=== PATIENT | male | born 1930 | race Caucasian/White ===

== ENCOUNTER 2016-10-03 05:54 | Day surgery (SDC) | payer MEDICARE, OTHER ==
[2016-10-03] MEDS ORDERED: Lactated Ringers 1,000 ML IV ONE (06:05)
[2016-10-03] MEDS ORDERED: Lactated Ringers 1,000 ML IV SCH (06:30)
[2016-10-03] MEDS ORDERED: DIPRIVAN 200 MG/20 ML IV ONE (08:00)
[2016-10-03 08:54] VITALS: PULSE 65
[2016-10-03 09:10] VITALS: O2SAT 93
[2016-10-03 09:18] VITALS: BP 169/80
--- NOTE | 2016-10-03 11:50 | OP ---
SURGERY DATE/TIME: 10/03/2016709 PREOPERATIVE DIAGNOSIS: Rectal bleeding. POSTOPERATIVE DIAGNOSIS: Eight sessile polyps status post hot forceps polypectomy. PROCEDURE: Colonoscopy. SURGEON: Kush Wood M.D. ANESTHESIA: MAC by Anders Jaime CRNA. ESTIMATED BLOOD LOSS: Minimal. SPECIMENS: Eight sessile polyps for hot forceps polypectomy. DESCRIPTION OF PROCEDURE: After informed written consent was obtained, the patient was taken to the endoscopy suite. He underwent monitored anesthesia and digital rectal exam showed normal sphincter tone and no internal lesions. The scope was inserted in the rectum and sequentially the entire colonic mucosa was traversed. The level of cecum was reached and verified with direct visualization of ileocecal valve. Four sessile polyps were removed from the pericecal area and sent together for pathology testing. They were all small and benign appearing in nature. There were two more polyps present in the ascending colon and these were near the hepatic flexure. They likewise were removed in their entirety with hot forceps with removal of the entire lesion and good hemostasis. Upon withdrawal careful mucosal inspection revealed two more polyps removed from the sigmoid colon region and sent for pathology testing after hot forceps and removed the entire lesion with good hemostasis. Prior to withdrawal retroflexion was performed and showed no internal lesions. The scope was removed and the patient was transferred to the recovery room in excellent condition.
== END 2016-10-03 09:18 | disposition home or self-care (01) ==
LOC: SDC 05:54
PROVIDERS: ATTEND Family Medicine
PROC: 0DBH8ZX Excision of Cecum, Via Natural or Artificial Opening Endoscopic, Diagnostic (ICD-10-PCS; principal; 2016-10-03)
PROC: 0DBN8ZX Excision of Sigmoid Colon, Via Natural or Artificial Opening Endoscopic, Diagnostic (ICD-10-PCS; 2016-10-03)
PROC: 0DBK8ZX Excision of Ascending Colon, Via Natural or Artificial Opening Endoscopic, Diagnostic (ICD-10-PCS; 2016-10-03)
DX: D12.0 Benign neoplasm of cecum (principal); D12.2 Benign neoplasm of ascending colon; D12.4 Benign neoplasm of descending colon; I10 Essential (primary) hypertension; I25.2 Old myocardial infarction; Z79.899 Other long term (current) drug therapy; Z79.4 Long term (current) use of insulin
CPT/HCPCS: 00810; 36415; 88305; 99100; J2704

== ENCOUNTER 2018-10-17 14:08 | Emergency (ER) | payer MEDICARE, OTHER ==
--- NOTE | 2018-10-17 16:04 | ERPHSYRPT ---
- History of Present Illness Time Seen by Provider: 10/17/18 15:26 Source: patient Exam Limitations: no limitations Patient Subjective Stated Complaint: is being treated for a UTI. started with back pain today. no known injury. Triage Nursing Assessment: alert and in no distress.. c/o pain in right low back pain this AM. currently being treated dfor a UTI.. was seen by Dr Day for this problem.. denies injury to his back. able to ambulate. states his urine is better but concerned of the back pain" Physician History: Pt has been c/o right sided low back pain for weeks. He was seen by his physician earlier this week, and started on antibiotics for UTI. He woke up this morning c/o more severe pain, called his doctor and was instructed to come here. He denies fall, injury to his back, no former surgery, no fever, chills, nausea, vomiting, or difficulty urinating. He also denies abdominal or chest pain, SOB, other complaints. He is able to ambulate, no leg weakness, numbness or radiating pain to his legs. Timing/Duration: week(s) (2) Method of Injury: unknown Quality: sharp Back Pain Location: lumbar spine Severity of Pain-Max: severe Severity of Pain-Current: moderate Modifying Factors: Improves With: immobilization, movement Associated Symptoms: denies symptoms Previous symptoms: same symptoms as today Allergies/Adverse Reactions: codeine Adverse Reaction (Unknown, Verified 10/03/16 07:54) Penicillins Adverse Reaction (Unknown, Verified 10/03/16 07:54) Sulfa (Sulfonamide Antibiotics) Adverse Reaction (Unknown, Verified 10/03/16 07: 54) Home Medications: Acetaminophen 1,000 mg PO BID 10/03/16 [History] Ascorbic Acid [Vitamin C] 100 mg PO DAILY 10/03/16 [History] Aspirin [Aspirin EC] 81 mg PO DAILY 10/03/16 [History] Atorvastatin Calcium 80 mg PO DAILY 10/03/16 [History] Calcium 1 tab PO BID 10/03/16 [History] Famotidine 20 mg [Pepcid 20 MG] 20 mg PO BID 10/03/16 [History] Famotidine 20 mg [Pepcid 20 MG] 20 mg PO DAILY 10/03/16 [History] Finasteride 5 mg [Proscar 5 MG] 5 mg PO DAILY 10/03/16 [History] Furosemide 40 mg [Lasix 40 MG] 40 mg PO DAILY 10/03/16 [History] Gabapentin 300 mg PO TID 10/03/16 [History] Losartan Potassium 50 mg [Cozaar 50 MG] 50 mg PO BID 10/03/16 [History] Magnesium Oxide 400 mg [Mag-Ox 400] 400 mg PO BID 10/03/16 [History] Metoprolol Tartrate 50 mg [Lopressor 50 MG] 50 mg PO BID 10/03/16 [History ] Multivitamin [Daily Multivitamin] 1 tab PO DAILY 10/03/16 [History] PANTOPRAZOLE 40 mg Tablet [Protonix 40MG Tablet] 40 mg PO DAILY 10/03/16 [ History] Potassium Chloride [Klor-Con] 20 meq PO BID 10/03/16 [History] Tamsulosin HCl 0.4 mg [Flomax 0.4 MG] 0.4 mg PO DAILY 10/03/16 [History] Warfarin Sodium 2.5 mg [Coumadin 2.5 MG] 2.5 mg PO DAILY 10/03/16 [History ] - Review of Systems Constitutional: No Symptoms Ears, Nose, & Throat: No Symptoms Respiratory: No Symptoms Cardiac: No Symptoms Abdominal/Gastrointestinal: No Symptoms Genitourinary Symptoms: No Symptoms Musculoskeletal: Back Pain Skin: No Symptoms Neurological: No Symptoms All Other Systems: Reviewed and Negative - Past Medical History Pertinent Past Medical History: Yes Neurological History: No Pertinent History ENT History: Cataracts Cardiac History: Arrhythmia, Hypertension, Myocardial Infarction ([place]) Respiratory History: No Pertinent History Endocrine Medical History: No Pertinent History Musculoskeletal History: Osteoarthritis, Other GI Medical History: No Pertinent History History: Renal Disease Psycho-Social History: No Pertinent History Male Reproductive Disorders: Prostate Problems Other Medical History: Left KNEE REPLACEMENT 2011, CATARACTS BOTH EAYES 2010 AND 2011, OPEN HEART SURGERY 2016 November 30,pacemaker Jun 12 2016, states saw a kidney Dr once and was told he has 37% function, pt states kidney function has increased to 40's - Past Surgical History Past Surgical History: Yes Neuro Surgical History: No Pertinent History Cardiac: CABG, Pacemaker Respiratory: No Pertinent History Gastrointestinal: No Pertinent History Genitourinary: No Pertinent History Musculoskeletal: Orthopedic Surgery Male Surgical History: No Pertinent History Other Surgical History: Left knee replacement,open heart November,Pacemaker ,bilateral cataract removal with lens implants, tribeckelectomy- procedure for glaucoma to remove pressure - Social History Smoking Status: Never smoker Exposure to second hand smoke: No Drug Use: none Patient Lives Alone: No - Nursing Vital Signs Nursing Vital Signs: Initial Vital Signs Temperature 98 F 10/17/18 15:30 Pulse Rate 65 10/17/18 15:30 Respiratory Rate 18 10/17/18 15:30 Blood Pressure 180/91 10/17/18 15:30 O2 Sat by Pulse Oximetry 97 10/17/18 15:30 Pain Scale Pain Intensity 4 - Physical Exam General Appearance: no apparent distress Eye Exam: eyes nml inspection Ears, Nose, Throat Exam: normal ENT inspection, moist mucous membranes Neck Exam: normal inspection, non-tender, supple, No JVD Respiratory Exam: normal breath sounds, lungs clear Cardiovascular Exam: regular rate/rhythm, normal heart sounds, normal peripheral pulses Gastrointestinal Exam: soft, normal bowel sounds, No tenderness, No distention, No mass, No guarding, No pulsatile mass, No rebound, No organomegaly Back Exam: normal inspection, other (right lumbosacral tenderness, no spasms), No CVA tenderness, No vertebral tenderness, No rash, No muscle spasm, No point tenderness Extremity Exam: normal inspection, No calf tenderness Peripheral Pulses: dorsalis-pedis (R): 2+, dorsalis-pedis (L): 2+ Neurologic Exam: alert, oriented x 3, cooperative, normal mood/affect, sensation nml, No motor deficits Skin Exam: normal color, warm, dry, No rash SpO2 Interpretation: normal SpO2: 97 O2 Delivery: Room Air - Course Nursing assessment & vital signs reviewed: Yes - CT Exams Abdomen/Pelvis CT Interpretation: Other (right kidney calyceal stone, no obstruction) Ordered Tests: Active Orders 24 hr Category Date Time Status ABDOMEN AND PELVIS W/0 CONTRAS [CT] Stat Exams 10/17/18 15:51 Taken UA W/RFX UR CULTURE Stat Lab 10/17/18 16:15 Completed Medication Summary Discontinued Medications Generic Name Dose Route Start Last Admin Trade Name Freq PRN Reason Stop Dose Admin Tramadol HCl 50 mg 10/17/18 17:28 Ultram 50 Mg PO 10/17/18 17:29 STAT ONE Lab/Rad Data: Laboratory Results 10/17/18 Range/Units 16:15 Urine Color YELLOW (YELLOW) Urine Appearance CLEAR (CLEAR) Urine pH 5.0 (5-6) Ur Specific [place] 1.012 (1.005-1.025) Urine Protein NEGATIVE (Negative) Urine Ketones NEGATIVE (NEGATIVE) Urine Blood SMALL (0-5) Mahendra/ul Urine Nitrite NEGATIVE (NEGATIVE) Urine Bilirubin NEGATIVE (NEGATIVE) Urine Urobilinogen NEGATIVE (0-1) mg/dL Ur Leukocyte Esterase NEGATIVE (NEGATIVE) Urine WBC (Auto) NONE (0-5) /HPF Urine RBC (Auto) NONE (0-2) /HPF U Epithel Cells (Auto) NONE (FEW) /HPF Urine Bacteria (Auto) NONE SEEN (NEGATIVE) /HPF Urine Mucus (Auto) SLIGHT (NEGATIVE) /HPF Urine Culture Reflexed NO (NO) Urine Glucose NEGATIVE (NEGATIVE) mg/dL - Progress Progress: unchanged Progress Note: 10/17/18 17:[address] and lab results, he has been stable, afebrile, he was given an Ultram to go home and rest x 2-3 days, apply moist heat to his back and follow up with his physician in 2-3 days. Counseled pt/family regarding: lab results, diagnosis, need for follow-up, rad results - Departure Departure Disposition: Home Clinical Impression: Back pain Qualifiers: Back pain location: low back pain Chronicity: acute Back pain laterality: right Sciatica presence: without sciatica Qualified Code(s): M54.5 - Low back pain Condition: Stable Critical Care Time: No Referrals: DREAD DAY MD [Primary Care Provider] - Instructions: Low Back Pain (DC) Additional Instructions: Rest x 2-3 days, apply moist heat to painful area, and follow up with your physician next week! Return if severe pain, sudden leg weakness, numbness, loss of bladder, bowel control! Prescriptions: Cyclobenzaprine HCl 10 mg [Cyclobenzaprine 10 MG] 10 mg PO TID #30 tablet Tramadol HCl 50 mg [Ultram 50 mg] 50 mg PO Q6H #10
[2018-10-17 16:24] LABS: Appearance CLEAR (CLEAR); Bilirubin NEGATIVE (NEGATIVE); Blood SMALL Ery/ul (0-5); Glucose NEGATIVE (NEGATIVE); Ketones NEGATIVE (NEGATIVE); Leukocyte Esterase NEGATIVE (NEGATIVE); Mucus SLIGHT /HPF (NEGATIVE); Nitrite NEGATIVE (NEGATIVE); Protein,Urine Dip NEGATIVE (Negative); Specific Gravity 1.012 (1.005-1.025); Urobilinogen NEGATIVE mg/dL (0-1)
[2018-10-17 16:30] LABS: Bacteria NONE SEEN /HPF (NEGATIVE)
[2018-10-17 16:35] VITALS: BP 159/83; PULSE 66
[2018-10-17] MEDS ORDERED: ULTRAM 50 MG PO ONE (17:28)
[2018-10-17 17:30] VITALS: O2SAT 97
[2018-10-17] MEDS ORDERED: ULTRAM 50 MG ONE (17:33)
--- NOTE | 2018-10-17 19:42 | XRAY ---
Indication: Abdomen pain. Right flank pain. Multiple contiguous axial images obtained through the abdomen and pelvis without contrast as ordered. Comparison: Non-. Lung bases hyperinflated with minimal scattered fibrosis/scarring. No infiltrate or effusion. Heart is not enlarged. Noncontrasted stomach and bowel loops appear nonobstructed. Appendix not seen. There is moderate diffuse scattered colonic fecal debris throughout. No free fluid/air. 8.5 cm right renal cyst. 1 cm left lobe hepatic cyst. Remaining liver, gallbladder, pancreas, spleen, adrenal glands, kidneys, ureters, and bladder appear unremarkable for noncontrast exam. Heavy scattered vascular calcifications including renal arteries. No AAA. Osseous structures demonstrates moderate/advanced multilevel degenerative changes throughout the thoracolumbar spine. Also bilateral L5 spondylolysis with 2-3 mm spondylolisthesis. Small fatty left inguinal hernia. Impression: 1. Fecal stasis without obstruction. 2. 8.5 cm right renal cyst & 1 cm hepatic cyst. 3. Small fatty left inguinal hernia. 4. 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 Comment: Preliminary interpretation was made by [facility]. No critical discrepancy. CTDI 21.55
== END 2018-10-17 17:48 | disposition home or self-care (01) ==
LOC: ED 14:08
DX: M54.5 Low back pain (principal); N39.0 Urinary tract infection, site not specified; Z79.01 Long term (current) use of anticoagulants; Z79.899 Other long term (current) drug therapy; I10 Essential (primary) hypertension; I25.2 Old myocardial infarction; N28.9 Disorder of kidney and ureter, unspecified; M19.90 Unspecified osteoarthritis, unspecified site; Z95.0 Presence of cardiac pacemaker
CPT/HCPCS: 74176; 81001; 99284; A9270-GY

== ENCOUNTER 2021-02-16 17:12 | Emergency (ER) | payer MEDICARE, OTHER ==
--- NOTE | 2021-02-16 17:15 | ERPHSYRPT ---
- History of Present Illness Time Seen by Provider: 02/16/21 17:15 Source: patient, family Exam Limitations: no limitations Physician History: This is a right-handed 89-year-old white male who is on Coumadin and accidentally cut himself on his left hand prior to arrival. He is on Coumadin and he was having trouble stopping the bleeding and that is why he came in. He has full function of his left hand and fingers. Patient states he thinks his tetanus status is up-to-date. Timing/Duration: today Quality: painful Severity: mild Location: hands (Left) Possible Causes: other (Accidental laceration) Allergies/Adverse Reactions: codeine Adverse Reaction (Unknown, Verified 02/16/21 17:19) Penicillins Adverse Reaction (Unknown, Verified 02/16/21 17:19) Sulfa (Sulfonamide Antibiotics) Adverse Reaction (Unknown, Verified 02/16/21 17:19) Home Medications: Acetaminophen 1,000 mg PO BID 10/03/16 [History] Ascorbic Acid [Vitamin C] 100 mg PO DAILY 10/03/16 [History] Aspirin [Aspirin EC] 81 mg PO DAILY 10/03/16 [History] Atorvastatin Calcium 80 mg PO DAILY 10/03/16 [History] Calcium 1 tab PO BID 10/03/16 [History] Famotidine 20 mg [Pepcid 20 MG] 20 mg PO BID 10/03/16 [History] Famotidine 20 mg [Pepcid 20 MG] 20 mg PO DAILY 10/03/16 [History] Finasteride 5 mg [Proscar 5 MG] 5 mg PO DAILY 10/03/16 [History] Furosemide 40 mg [Lasix 40 MG] 40 mg PO DAILY 10/03/16 [History] Gabapentin 300 mg PO TID 10/03/16 [History] Losartan Potassium 50 mg [Cozaar 50 MG] 50 mg PO BID 10/03/16 [History] Magnesium Oxide 400 mg [Mag-Ox 400] 400 mg PO BID 10/03/16 [History] Metoprolol Tartrate 50 mg [Lopressor 50 MG] 50 mg PO BID 10/03/16 [History] Multivitamin [Daily Multivitamin] 1 tab PO DAILY 10/03/16 [History] PANTOPRAZOLE 40 mg Tablet [Protonix 40MG Tablet] 40 mg PO DAILY 10/03/16 [History] Potassium Chloride [Klor-Con] 20 meq PO BID 10/03/16 [History] Tamsulosin HCl 0.4 mg [Flomax 0.4 MG] 0.4 mg PO DAILY 10/03/16 [History] Warfarin Sodium 2.5 mg [Coumadin 2.5 MG] 2.5 mg PO DAILY 10/03/16 [History] Travel Risk - International Travel Have you traveled outside of the country in past 3 weeks: No - Coronavirus Screening Are you exhibiting any of the following symptoms?: No Close contact with a COVID-19 positive Pt in past 14-21 Days: No - Review of Systems Constitutional: No Symptoms Eyes: No Symptoms Ears, Nose, & Throat: No Symptoms Respiratory: No Symptoms Cardiac: No Symptoms Abdominal/Gastrointestinal: No Symptoms Genitourinary Symptoms: No Symptoms Musculoskeletal: No Symptoms Skin: Other (Laceration thenar eminence left side) Neurological: No Symptoms Psychological: No Symptoms Endocrine: No Symptoms Hematologic/Lymphatic: No Symptoms Immunological/Allergic: No Symptoms All Other Systems: Reviewed and Negative - Past Medical History Pertinent Past Medical History: Yes Neurological History: No Pertinent History ENT History: Cataracts Cardiac History: Angina, Coronary Artery Disease, Myocardial Infarction ([place]), Hypertension Respiratory History: No Pertinent History Endocrine Medical History: No Pertinent History Musculoskeletal History: Arthritis GI Medical History: No Pertinent History History: Renal Disease Psycho-Social History: No Pertinent History Male Reproductive Disorders: Prostate Problems Other Medical History: Left TKA 2011, CATARACTS BOTH EYES 2010 AND 2011, OPEN HEART SURGERY 2015November 30,. PACEMAKER Jun 12 2016 - Past Surgical History Past Surgical History: Yes Neuro Surgical History: No Pertinent History Cardiac: CABG, Pacemaker Respiratory: No Pertinent History Gastrointestinal: No Pertinent History Genitourinary: No Pertinent History Musculoskeletal: Orthopedic Surgery Male Surgical History: No Pertinent History Other Surgical History: Left knee replacement,open heart November,Pacemaker ,bilateral cataract removal with lens implants, tribeckelectomy- procedure for glaucoma to remove pressure - Social History Smoking Status: Never smoker Exposure to second hand smoke: No Drug Use: none Patient Lives Alone: No - Nursing Vital Signs Nursing Vital Signs: Initial Vital Signs Temperature 97.8 F 02/16/21 17:13 Pulse Rate 71 02/16/21 17:13 Blood Pressure 137/77 02/16/21 17:13 O2 Sat by Pulse Oximetry 99 02/16/21 17:13 Pain Scale Pain Intensity 0 - Physical Exam General Appearance: no apparent distress, alert Eye Exam: PERRL/EOMI, eyes nml inspection Ears, Nose, Throat Exam: normal ENT inspection, moist mucous membranes Neck Exam: normal inspection, non-tender, supple, full range of motion Respiratory Exam: airway intact, No chest tenderness, No respiratory distress Gastrointestinal/Abdomen Exam: No tenderness Rectal Exam: not done Back Exam: normal inspection, normal range of motion, No CVA tenderness, No vertebral tenderness Extremity Exam: normal range of motion, pelvis stable, lacerations (0.5 cm linear laceration left thenar eminence. No foreign body present. Oozing from skin edges), tenderness (Mild and localized) Neurologic Exam: alert, oriented x 3, cooperative, asthma educator II-XII nml as tested, normal mood/affect, nml cerebellar function, nml station & gait, sensation nml Skin Exam: laceration (Left thenar eminence. See above) Lymphatic Exam: No adenopathy SpO2 Interpretation: normal O2 Delivery: Room Air Procedures - Laceration/Wound Repair Left Hand Time of Procedure: 17:40 Wound Location: Left, hand (Thenar eminence) Wound Length (cm): 0.5 Wound's Depth, Shape: superficial, linear Wound Explored: clean (Mild oozing from the skin edges. Evaluation is made to the base and no foreign body noted) Irrigated: Yes Hibiclens Prep: Yes Anesthesia: 1% Lidocaine Volume Anesthetic (ccs): 2 Wound Repaired With: sutures Suture Size/Type: 3-0, prolene Number of Sutures: 3 Sterile Dressing Applied?: Yes Progress: 02/16/21 17:52 Pressure dressing applied - Course Nursing assessment & vital signs reviewed: Yes Ordered Tests: Medication Summary Discontinued Medications Generic Name Dose Route Start Last Admin Trade Name Freq PRN Reason Stop Dose Admin Lidocaine HCl Confirm 02/16/21 17:32 Xylocaine 1% Hcl 20 Ml Mdv Administered 02/16/21 17:33 Dose 5 ml .ROUTE .STK-MED ONE - Progress Progress: improved Counseled pt/family regarding: diagnosis, need for follow-up - Departure Departure Disposition: Home Clinical Impression: Laceration of left hand Condition: Stable Critical Care Time: No Referrals: SHELLY VAUGHAN [Primary Care Provider] - Additional Instructions: Keep current pressure dressing in place until the evening of 02/17/2021. Tomorrow evening, may remove the dressing and wash with soap and water. Blot dry or use a hairdryer to dry the area and then reapply a thin layer of antibiotic ointment of choice once daily after washing site. Replace the dressing. Suture removal in 7 to 10 days.
[2021-02-16 17:19] VITALS: BP 137/77; PULSE 71; O2SAT 99
[2021-02-16] MEDS ORDERED: XYLOCAINE 1% HCL 20 ML MDV ONE (17:32)
== END 2021-02-16 18:00 | disposition home or self-care (01) ==
LOC: ED 17:12
DX: S61.412A Laceration without foreign body of left hand, initial encounter (principal); Z79.899 Other long term (current) drug therapy; W45.8XXA Other foreign body or object entering through skin, initial encounter; Y93.9 Activity, unspecified; Y92.9 Unspecified place or not applicable; I10 Essential (primary) hypertension; I25.2 Old myocardial infarction; I25.10 Atherosclerotic heart disease of native coronary artery without angina pectoris; Z95.0 Presence of cardiac pacemaker
CPT/HCPCS: 12001; 99282